=== PATIENT | male | born 1965 | race Asian ===

== ENCOUNTER 2016-11-29 17:51 | Emergency (ER) | payer MEDICAID ==
--- NOTE | 2016-11-29 20:31 | ED Physician Chart ---
Chief Complaint/HPI - Patient Information Date Seen:: 11/29/16 Time Seen:: 20:15 Chief Complaint:: pains hands and knees History of Present Illness:: history of gout. Has had pain in hands and knees for more than one week. Denies trauma. Allergies:: Allergies Allergy/AdvReac Type Severity Reaction Status Date / Time No Known Allergies Allergy Verified 11/29/16 17:55 Vitals:: Vital Signs - 8 hr 11/29/16 18:28 Temp 98.2 F HR 80 RR 17 BP 142/77 O2 Sat % 99 Historian:: Patient Review:: Nurse's Note Reviewed Review of Systems - Review of Systems General/Constitutional: No fever, No chills Skin: No skin lesions Head: No headache Eyes: No loss of vision ENT: No earache Neck: No neck pain, No swelling Cardio Vascular: No chest pain Pulmonary: No SOB GI: Nausea, No vomiting G/U: No dysuria, No hematuria Musculoskeletal: Bone or joint pain Psychiatric: No prior psych history Hematopoietic: No bruising Allergic/Immuno: No urticaria Neurological: No syncope, No focal symptoms Past Medical History - Past Medical History Past Medical History: Other (gout) Family History: Diabetes Melitus Social History: Non Smoker, Alcohol, Other (occasional ETOH) Surgical History: None Psychiatricy History: None Medication: Reviewed Physical Exam - Physical Examination General/Constitutional: Awake, Well-developed, well-nourished, Alert, No distress Head: Atraumatic Eyes: Lids, conjuctiva normal Skin: Nl inspection, No rash ENMT: External ears, nose nl Neck: No nuchal rigidity Respiratory: Nl effort/Exclusion, Clear to Auscultation Cardio Vascular: RRR GI: No tenderness/rebounding/guarding : No CVA tenderness Other Extremities comments:: multiple nodes on hands; pre-patellar swelling without erythema left knee Neuro/Psych: Alert/oriented Misc: Normal back ED Septic Shock - . Is Septic Shock (SBP<90, OR Lactate>4 mmol\L) present?: No - <6hrs of presentation: Vital Signs: Vital Signs - 8 hr 11/29/16 18:28 Temp 98.2 F HR 80 RR 17 BP 142/77 O2 Sat % 99 Reassessment (Disposition) - Reassessment Reassessment:: suggested also taking ibuprofen 200 mg x2 TID with meals Reassessment Condition:: Improved - Diagnosis Diagnosis:: gout exacerbation - Aftercare/Follow up Instructions Aftercare/Follow-Up Instructions:: Refer to Discharge Instructions Medication Prescribed:: [place] 10/325 #20 Sig 1/2-1 QID PRN - Patient Disposition Discharge/Transfer:: Home Condition at Disposition:: Stable, Improved ED Discharge Plan - Patient Disposition Prescriptions: Hydrocodone/APAP 10 mg/325 mg [[place] 10 mg/325 mg] 1 tab PO QID PRN #20 tab PRN Reason: Pain (Moderate) Instructions: Gout, [id number] Additional Instructions: Rest and take antiinflammatory as needed
== END 2016-11-29 21:40 | disposition home or self-care (01) ==
LOC: ER 17:51
DX: M10.9 Gout, unspecified (principal)
CPT/HCPCS: 99283; 96372; J1885; Z7502